=== PATIENT | female | born 1980 | race Caucasian/White ===

== ENCOUNTER 2022-07-19 08:58 | Inpatient (IN) | payer OTHER ==
[2022-07-14 12:59] VITALS: BMI 29.0
[2022-07-19 12:14] LABS: #Basophils 0.1 thou/uL (0.0-0.2); #Lymphocytes 2.1 thou/uL (1.20-3.40); #Monocytes 0.4 thou/uL (0.11-0.59); #Neutrophils 3.8 thou/uL (1.40-6.50); %Basophils 0.8 % (0.0-1.0); %Eosinophils 0.8 % (0.0-10.0); %Lymphocytes 33.1 % (21.0-51.0); %Monocytes 6.2 % (0.0-10.0); %Neutrophils 59.1 % (42.0-75.0); Hemoglobin 13.3 g/dL (12.0-16.0); Mean Corpuscular HGB CONC 33.5 g/dL (32.0-36.0); Mean Corpuscular Hemoglobin 32.4 pg (27.0-31.0); Mean Corpuscular Volume 96.8 fl (78.0-98.0); Mean Platelet Volume 7.4 fL (7.4-10.4); Platelet Count 323 10x3/uL (130-400); RBC Distribution Width 11.1 % (11.5-14.5); Red Blood Cell (RBC) Count 4.11 mill/uL (4.20-5.40); White Blood Cell (WBC) Count 6.5 10x3/uL (4.8-10.8)
[2022-07-19 12:35] LABS: Anion Gap 13 mmol/L (10-20); BUN (Urea Nitrogen) 16 mg/dL (7.0-18.7); Calc. Creatinine Clearance 122 mL/min (70-130); Calcium 9.3 mg/dL (7.8-10.44); Carbon Dioxide 22 mmol/L (22-29); Chloride 106 mmol/L (98-107); Estimated GFR 112; Glucose 95 mg/dL (70-105); Potassium 4.3 mmol/L (3.5-5.1); Sodium 137 mmol/L (136-145)
[2022-07-19] MEDS ORDERED: Levofloxacin 500 mg/D5W 100 ml Premix Bag ONE (13:39)
[2022-07-19] MEDS ORDERED: KETAMINE 100 MG/ML (5ML VIAL) ONE (14:21)
[2022-07-19] MEDS ORDERED: fentaNYL PF 100 MCG/2 ML SYRINGE ONE (14:21)
[2022-07-19] MEDS ORDERED: Clindamycin/D5W 900 mg/50 ml Premix Bag ONE (14:25)
[2022-07-19] MEDS ORDERED: PROPOFOL 200 MG/20 ML VIAL ONE (14:50)
[2022-07-19] MEDS ORDERED: Rocuronium Bromide 10 MG/ML (10ML VIAL) ONE (14:50)
[2022-07-19] MEDS ORDERED: Dexamethasone 20 MG/5 ML VIAL ONE (14:50)
[2022-07-19] MEDS ORDERED: Lidocaine 1% PF 5 ML VIAL ONE (14:50)
[2022-07-19] MEDS ORDERED: Ondansetron PF 4 MG/2 ML Vial ONE (14:50)
[2022-07-19] MEDS ORDERED: SUGAMMADEX SODIUM 200 MG/2 ML VIAL ONE (15:43)
[2022-07-19] MEDS ORDERED: Midazolam HCl 2 mg/2 ml Vial ONE (15:47)
[2022-07-19] MEDS ORDERED: Ondansetron PF 4 MG/2 ML Vial IVP PRN (15:56)
[2022-07-19] MEDS ORDERED: Promethazine HCl 12.5 MG SUPP PR PRN (15:56)
[2022-07-19] MEDS ORDERED: Promethazine 25 MG TAB PO PRN (15:56)
[2022-07-19] MEDS ORDERED: Mag-Al 1200 mg/1200 mg/30 ML UDCUP PO PRN (15:56)
[2022-07-19] MEDS ORDERED: diphenhydrAMINE 25 MG CAP PO PRN (15:56)
[2022-07-19] MEDS ORDERED: Milk Of Magnesia 30 ML UDCUP PO PRN (15:56)
[2022-07-19] MEDS ORDERED: Promethazine HCl 25 MG/ML VIAL IM PRN (16:10)
[2022-07-19] MEDS ORDERED: Ondansetron HCl/PF 4 MG/2 ML Vial IVP PRN (16:10)
[2022-07-19] MEDS ORDERED: Fentanyl 250 MCG/5 ML VIAL ONE (16:18)
[2022-07-19] MEDS ORDERED: HYDROmorphone 0.5 MG/0.5 ML SYRINGE ONE (16:42)
[2022-07-19] MEDS: Sodium Chloride 0.9% 1,000 ML IV SCH (17:10)
[2022-07-19] MEDS: HYDROcodone/Acetaminophen 10/325 mg Tablet PO PRN (18:18)
[2022-07-19] MEDS: traMADol HCl 50 MG TAB PO PRN (21:10)
[2022-07-19] MEDS: Gabapentin 300 MG CAP PO SCH (21:10)
[2022-07-19] MEDS: Clindamycin/D5W 900 MG in Premix Bag 1 BAG IVPB SCH (23:41)
[2022-07-20] MEDS: HYDROcodone/Acetaminophen 10/325 mg Tablet PO PRN ×4 (03:39→20:17)
[2022-07-20] MEDS: Clindamycin/D5W 900 MG in Premix Bag 1 BAG IVPB SCH (06:06)
[2022-07-20] MEDS: Sodium Chloride 0.9% 1,000 ML IV SCH ×2 (06:48→16:35)
[2022-07-20] MEDS: Dexamethasone 4 mg/ml Vial SLOW IVP SCH ×3 (06:53→22:43)
[2022-07-20] MEDS: Gabapentin 300 MG CAP PO SCH ×3 (08:14→20:17)
[2022-07-20] MEDS: Escitalopram Oxalate 10 mg Tablet PO SCH (08:15)
[2022-07-20] MEDS: Cyclobenzaprine 10 MG TAB PO PRN ×2 (12:09→22:42)
[2022-07-20] MEDS: traMADol HCl 50 MG TAB PO PRN (17:26)
[2022-07-21] MEDS: HYDROcodone/Acetaminophen 10/325 mg Tablet PO PRN ×3 (02:58→12:00)
[2022-07-21] MEDS: Dexamethasone 4 mg/ml Vial SLOW IVP SCH (05:22)
[2022-07-21] MEDS: traMADol HCl 50 MG TAB PO PRN (05:22)
[2022-07-21 08:30] VITALS: TEMP 98.2
[2022-07-21] MEDS: Escitalopram Oxalate 10 mg Tablet PO SCH (08:32)
[2022-07-21] MEDS: Gabapentin 300 MG CAP PO SCH (08:33)
[2022-07-21] MEDS: Sodium Chloride 0.9% 1,000 ML IV SCH (08:34)
[2022-07-21 12:18] VITALS: BP 128/85
== END 2022-07-21 12:30 | disposition home or self-care (01) | DRG 473 ==
LOC: SURG A 08:58 → EDSTATUS 15:51 → SURG A 17:06
PROVIDERS: ADMIT Neurological Surgery; ATTEND Neurological Surgery
PROC: 0RG20A0 Fusion of 2 or more Cervical Vertebral Joints with Interbody Fusion Device, Anterior Approach, Anterior Column, Open Approach (ICD-10-PCS; principal; 2022-07-19)
PROC: 0RB30ZZ Excision of Cervical Vertebral Disc, Open Approach (ICD-10-PCS; 2022-07-19)
DX: M50.321 Other cervical disc degeneration at C4-C5 level (principal); R13.10 Dysphagia, unspecified; M48.02 Spinal stenosis, cervical region; G89.29 Other chronic pain; Z91.030 Bee allergy status; Z88.0 Allergy status to penicillin; Z91.018 Allergy to other foods; Z88.8 Allergy status to other drugs, medicaments and biological substances
CPT/HCPCS: 80048; 85025; 93005; 93010; C1713; J1100; J1170; J1956; J2250; J2405; J2704; J3010; J3490; J7050

== ENCOUNTER 2022-08-04 12:38 | Outpatient (CLI) | payer OTHER | END 2022-08-04 12:39 | disposition home or self-care (01) | LOC: TBSIIMAG 12:38 | PROVIDERS: ATTEND Neurological Surgery | DX: M47.12 Other spondylosis with myelopathy, cervical region (principal); Z98.890 Other specified postprocedural states | CPT/HCPCS: 72040 ==

== ENCOUNTER 2022-11-22 05:37 | Inpatient (IN) | payer OTHER ==
[2022-11-18 12:26] VITALS: BMI 28.3
[2022-11-22] MEDS ORDERED: Vancomycin 1 GM VIAL ONE (06:29)
[2022-11-22] MEDS ORDERED: fentaNYL PF 100 MCG/2 ML SYRINGE ONE (06:37)
[2022-11-22] MEDS ORDERED: Midazolam HCl 2 mg/2 ml Vial ONE (06:37)
[2022-11-22] MEDS ORDERED: LevoFLOXacin 500 mg/D5W 100 ML BAG ONE (06:49)
[2022-11-22 06:52] LABS: Hematocrit 38.1 % (36.0-47.0); Hemoglobin 12.5 g/dL (12.0-16.0); Mean Corpuscular HGB CONC 32.8 g/dL (32.0-36.0); Mean Corpuscular Hemoglobin 32.9 pg (27.0-31.0); Mean Corpuscular Volume 100.3 fl (78.0-98.0); Mean Platelet Volume 10.3 fL (7.4-10.4); Platelet Count 276 10x3/uL (130-400); RBC Distribution Width 11.9 % (11.5-14.5); White Blood Cell (WBC) Count 5.3 10x3/uL (4.8-10.8)
[2022-11-22 07:14] LABS: Anion Gap 15 mmol/L (10-20); BUN (Urea Nitrogen) 13 mg/dL (7.0-18.7); Calc. Creatinine Clearance 117 mL/min (70-130); Calcium 8.2 mg/dL (7.8-10.44); Carbon Dioxide 21 mmol/L (22-29); Chloride 109 mmol/L (98-107); Estimated GFR 111; Glucose 87 mg/dL (70-105); Potassium 3.9 mmol/L (3.5-5.1); Sodium 141 mmol/L (136-145)
[2022-11-22] MEDS ORDERED: PROPOFOL 200 MG/20 ML VIAL ONE (07:18)
[2022-11-22] MEDS ORDERED: ePHEDrine Sulfate 50 MG/10 ML VIAL ONE (07:18)
[2022-11-22] MEDS ORDERED: Lidocaine 1% PF 5 ML VIAL ONE (07:18)
[2022-11-22] MEDS ORDERED: Rocuronium Bromide 10 MG/ML (10ML VIAL) ONE (07:18)
[2022-11-22] MEDS ORDERED: PHENYLEPHRINE-NS 100 MCG/ML 10 ML SYRINGE ONE (07:18)
[2022-11-22] MEDS ORDERED: Dexamethasone 20 MG/5 ML VIAL ONE (07:18)
[2022-11-22] MEDS ORDERED: Ondansetron PF 4 MG/2 ML Vial ONE (07:18)
[2022-11-22] MEDS ORDERED: Clindamycin/D5W 600 mg/50 ml Premix Bag ONE (07:21)
[2022-11-22] MEDS ORDERED: Milk Of Magnesia 30 ML UDCUP PO PRN (07:27)
[2022-11-22] MEDS ORDERED: Cyclobenzaprine 10 MG TAB PO PRN (07:27)
[2022-11-22] MEDS ORDERED: Ondansetron PF 4 MG/2 ML Vial IVP PRN (07:27)
[2022-11-22] MEDS ORDERED: Promethazine 25 MG TAB PO PRN (07:27)
[2022-11-22] MEDS ORDERED: diphenhydrAMINE 50 MG/ML VIAL IVP PRN (07:27)
[2022-11-22] MEDS ORDERED: Mag-Al 1200 mg/1200 mg/30 ML UDCUP PO PRN (07:27)
[2022-11-22] MEDS ORDERED: Acetaminophen/Codeine 30-300mg Tablet PO PRN (07:27)
[2022-11-22] MEDS ORDERED: Clindamycin/D5W 600 MG in Premix Bag 1 BAG IVPB SCH (08:00)
[2022-11-22] MEDS ORDERED: SUGAMMADEX SODIUM 200 MG/2 ML VIAL ONE (08:16)
[2022-11-22] MEDS ORDERED: HYDROmorphone 0.5 MG/0.5 ML SYRINGE ONE ×4 (08:48→09:38)
[2022-11-22] MEDS ORDERED: Ketorolac Tromethamine 30 MG/ML VIAL ONE (09:26)
[2022-11-22] MEDS ORDERED: fentaNYL 50 mcg/mL 1 mL Vial ONE ×3 (09:47→10:45)
[2022-11-22] MEDS: Sodium Chloride 0.9% 1,000 ML IV SCH ×2 (12:04→23:58)
[2022-11-22] MEDS: Gabapentin 300 MG CAP PO SCH ×3 (12:05→21:04)
[2022-11-22] MEDS: Escitalopram Oxalate 10 mg Tablet PO SCH (12:05)
[2022-11-22] MEDS: Acetaminophen/Codeine 30-300mg Tablet PO PRN ×3 (12:10→22:28)
[2022-11-22] MEDS: Morphine 2 MG/ML VIAL SLOW IVP PRN ×3 (13:10→23:44)
[2022-11-22] MEDS: Clindamycin/D5W 600 MG in Premix Bag 1 BAG IVPB SCH ×2 (15:50→23:52)
[2022-11-22] MEDS: tiZANidine HCl 4 MG TAB PO PRN (19:47)
[2022-11-22] MEDS: traMADol HCl 50 MG TAB PO PRN (21:03)
[2022-11-23] MEDS: tiZANidine HCl 4 MG TAB PO PRN ×3 (02:43→18:47)
[2022-11-23] MEDS: Acetaminophen/Codeine 30-300mg Tablet PO PRN (02:43)
[2022-11-23] MEDS: traMADol HCl 50 MG TAB PO PRN ×3 (05:48→22:06)
[2022-11-23] MEDS ORDERED: HYDROcodone/Acetaminophen 10/325 mg Tablet PO PRN (06:40)
[2022-11-23] MEDS: HYDROcodone/Acetaminophen 10/325 mg Tablet PO PRN ×3 (06:57→18:47)
[2022-11-23] MEDS: Sodium Chloride 0.9% 1,000 ML IV SCH ×2 (09:48→23:30)
[2022-11-23] MEDS: Escitalopram Oxalate 10 mg Tablet PO SCH (10:01)
[2022-11-23] MEDS: Gabapentin 300 MG CAP PO SCH ×3 (10:01→22:04)
[2022-11-24] MEDS: HYDROcodone/Acetaminophen 10/325 mg Tablet PO PRN ×4 (00:39→15:23)
[2022-11-24] MEDS: Sodium Chloride 0.9% 1,000 ML IV SCH (08:28)
[2022-11-24] MEDS: Gabapentin 300 MG CAP PO SCH ×2 (09:50→15:23)
[2022-11-24] MEDS: Escitalopram Oxalate 10 mg Tablet PO SCH (09:51)
[2022-11-24 13:22] VITALS: BP 111/72; TEMP 98
[2022-11-24] MEDS: traMADol HCl 50 MG TAB PO PRN (15:26)
== END 2022-11-24 15:45 | disposition home or self-care (01) | DRG 455 ==
LOC: SDC 05:37 → SURG B 07:31 → OBSVTOIN 11-23 06:40
PROVIDERS: ADMIT Neurological Surgery; ATTEND Neurological Surgery
PROC: 0SG30AJ Fusion of Lumbosacral Joint with Interbody Fusion Device, Posterior Approach, Anterior Column, Open Approach (ICD-10-PCS; principal; 2022-11-22)
PROC: 0SG30K1 Fusion of Lumbosacral Joint with Nonautologous Tissue Substitute, Posterior Approach, Posterior Column, Open Approach (ICD-10-PCS; 2022-11-22)
PROC: 0SB40ZZ Excision of Lumbosacral Disc, Open Approach (ICD-10-PCS; 2022-11-22)
PROC: 01NB0ZZ Release Lumbar Nerve, Open Approach (ICD-10-PCS; 2022-11-22)
DX: M51.37 Other intervertebral disc degeneration, lumbosacral region (principal)
CPT/HCPCS: 80048; 85027; C1713; C1889; J1100; J1170; J1885; J1956; J2250; J2272; J2405; J2704; J3010; J3370; J3490; J7050